=== PATIENT | male | born 1995 | race Caucasian/White ===

== ENCOUNTER 2019-01-21 11:06 | Emergency (ER) | payer SELFPAY ==
[~2019-01-21] VITALS: Ht 180.3 cm; Wt 75.1 kg
[2019-01-21 11:22] VITALS: BP 125/83
[2019-01-21] MEDS ORDERED: CEPH500T PO (11:28)
[2019-01-21] MEDS ORDERED: LIDOCAINE 1% Multi-Dose 20 ML VIAL. ONE (11:34)
[2019-01-21] MEDS ORDERED: cefTRIAXone IM 250 MG VIAL IM ONE (11:45)
[2019-01-21] MEDS ORDERED: AZITHROMYCIN 250 MG TABLET. PO ONE (11:45)
--- NOTE | 2019-01-21 11:49 | PHYS DOC ---
Adult General Chief Complaint Chief Complaint: SEXUALLY TRANSMITTED DISEASE HPI HPI Patient is a 23 yo m with cc of pain and burning when he urinates his urine is discolored this feels exactly the same as when he had chlamydia last time and is girlfriend just got tested for chlamydia last week and just started medicine for it yesterday. Patient also has a bump on his lip that he wants us to Review of Systems Review of Systems Constitutional: Denies fever or chills [] Eyes: Denies change in visual acuity, redness, or eye pain [] HENT: Denies nasal congestion or sore throat [] Respiratory: Denies cough or shortness of breath [] Musculoskeletal: Denies back pain or joint pain [] Integument: Neurologic: Denies headache, focal weakness or sensory changes [] Endocrine: Denies polyuria or polydipsia [] All other systems were reviewed and found to be within normal limits, except as documented in this note. Current Medications Current Medications Current Medications Medications (Trade) Dose Ordered Sig/Matthias Start Time Stop Time Status Last Admin Dose Admin Azithromycin (Zithromax) 1,000 mg 1X ONCE 01/21/19 11:45 01/21/19 11:44 DC 01/21/19 11:40 1,000 MG Ceftriaxone Sodium (Rocephin Im) 250 mg 1X ONCE 01/21/19 11:45 01/21/19 11:44 DC 01/21/19 11:40 250 MG Lidocaine HCl 20 ml STK-MED ONCE 01/21/19 11:34 01/21/19 11:34 DC Allergies Allergies Allergies Coded Allergies Type Severity Reaction Last Updated Verified No Known Drug Allergies 01/21/19 No Physical Exam Physical Exam Constitutional: Well developed, well nourished, no acute distress, non-toxic appearance. [] HENT: Normocephalic, atraumatic, bilateral external ears normal, there is a raised lesion on the left lower lip that sort of has the appearance of a blister that may recently popped there is some surrounding erythema and induration Eyes: PERRLA, EOMI, conjunctiva normal, no discharge. [] Neck: Normal range of motion, no tenderness, supple, no stridor. [] Pulmonary: Normal respiratory effort no increased work of breathing no obvious chest wall trauma Abdomen: Bowel sounds normal, soft, no tenderness, no masses, no pulsatile masses. [] exam was declined by the patient Skin: Warm, dry, no erythema, no rash. [] Back: No tenderness, no CVA tenderness. [] Extremities: No tenderness, no cyanosis, no clubbing, ROM intact, no edema. [] Neurologic: Alert and oriented X 3, normal motor function, normal sensory function, no focal deficits noted. [] Psychologic: Affect normal, judgement normal, mood normal. [] EKG EKG [] Radiology/Procedures Radiology/Procedures [] Course & Med Decision Making Course & Med Decision Making Pertinent Labs and Imaging studies reviewed. (See chart for details) []At this point time we'll treat presumptively for chlamydia given the history noted above. Recommend use protection for at least 2 weeks Regarding the lip lesion and could be a super infected blister of some kind. We'll give some antibiotics for that. Recommended cold sore [id number] medication for now. Herpetic lesion as a possibility but I think there may be a component of super infection so we'll try some antibiotics Dragon Disclaimer Dragon Disclaimer This electronic medical record was generated, in whole or in part, using a voice recognition dictation system. Departure Departure: Impression: Primary Impression: Dysuria Disposition: 01 HOME, SELF-CARE Condition: STABLE Patient Instructions: Sexually Transmitted Disease, [id number] Scripts Cephalexin (CEPHALEXIN) 500 Mg Tablet 1 TAB PO TID for lip, #21 TAB Prov: MJ BERMUDEZ MD 01/21/19 MJ BERMUDEZ MD Jan 21, 2019 11:49
== END 2019-01-21 11:43 | disposition home or self-care (01) ==
LOC: ER 11:06
DX: R30.0 Dysuria (principal); K13.0 Diseases of lips
CPT/HCPCS: 96372; 99283; J0456; J0696

== ENCOUNTER 2020-05-18 08:45 | Emergency (ER) | payer SELFPAY ==
[~2020-05-18] VITALS: Ht 177.8 cm; Wt 79.2 kg
[~2020-05-18 08:45] MED LIST: CEPH500T PO
--- NOTE | 2020-05-18 08:51 | PHYS DOC ---
Past History Past Medical History: No Pertinent History Past Surgical History: Tonsillectomy Alcohol Use: None Drug Use: None General Adult HPI: HPI: 24 yo M past medical history of tobacco dependence with occasional QT use, presents the ED with complaints of left-sided nonradiating chest pain described as "a knife in the heart," that started at 10 PM last night after patient smoked K2. Does report associated nausea, nonbloody nonbilious vomiting and one episode of loose watery nonbloody diarrhea prior to arrival. Does report history of marijuana dependence for 5 years. No history of IV drug use or recent alcohol abuse. No known cocaine or methamphetamine abuse. No associated blunt trauma or assault. No family history of ACS. No history of underlying lung disease or COPD or asthma. No history of DVT or PEs. Has not been tested for Covid. Review of Systems: Review of Systems: Constitutional: Denies fever or chills Eyes: Denies change in visual acuity HENT: Denies nasal congestion or sore throat Respiratory: Denies cough or shortness of breath Cardiovascular: Denies chest pain or edema GI: Denies abdominal pain, nausea, vomiting, bloody stools or diarrhea : Denies dysuria Musculoskeletal: Denies back pain or joint pain Integument: Denies rash Neurologic: Denies headache, focal weakness or sensory changes Endocrine: Denies polyuria or polydipsia Lymphatic: Denies swollen glands Psychiatric: Denies depression or anxiety Allergies: Allergies: Allergies Coded Allergies Type Severity Reaction Last Updated Verified No Known Drug Allergies 01/21/19 No Physical Exam: PE: Constitutional: unkept but nontoxic appearance, actively vomiting in ed (non bloody emesis), HENT: Normocephalic, atraumatic, no nuchal rigidity or meningismus Eyes: EOMI, conjunctiva normal, no discharge. Neck: Normal range of motion, supple, Cardiovascular: S1/2 present, regular rhythm Lungs & Thorax: Speaking in full sentences, bilateral equal chest rise, no tach ypnea or increased work of breathing Abdomen: soft, reports epigastic ttp, no McBurney's point tenderness, no Devries sign, no peritonitis or guarding Skin: Warm, dry, no erythema, no rash. [] Back: No tenderness, no CVA tenderness. [] Extremities: No tenderness, no cyanosis, no edema Neurologic: Alert and oriented X 3, normal motor function, normal sensory function, no focal deficits noted. [] Psychologic: Affect normal, judgement normal, mood normal. [] EKG: EKG: Sinus rhythm at 70 bpm, no axis deviation, normal intervals, no T wave inversions, no ST elevations or ST depressions no Q waves, Radiology/Procedures: Radiology/Procedures: IMAGING REPORT Signed PATIENT: MAGDA ANTHONY ACCOUNT: [id number] : 1995 LOCATION: ER AGE: 24 SEX: M EXAM STATUS: REG ER ORD. PHYSICIAN: CARLOS EDUARDO AMADOR DO REASON: cp PROCEDURE: CHEST PA & LATERAL XR CHEST 2V INDICATION: cp COMPARISON STUDY: None. FINDINGS: Lungs: Normal lung volume. No pulmonary mass or consolidation. The tracheobronchial tree and hilar structures are normal. Pleura: No pleural effusion or pneumothorax. Heart and Mediastinum: The cardiomediastinal silhouette is normal. The great vessels of the thorax are normal. IMPRESSION: No consolidation. Electronically signed by: Jessica Rawls MD (05/18/2020 9:15 AM) [id number] DICTATED AND SIGNED BY: JESSICA RAWLS MD DATE: 05/18/20911 CC: PCP,NO; CARLOS EDUARDO AMADOR DO ~MTH0 0 Impressions: 0 criteria No need for further workup, as <2% chance of PE. If no criteria are positive and clinicians pre-test probability is <15%, PERC Rule criteria are satisfied. 0 points Low risk group for DVT. Unlikely according to [facility] DVT studies. Heart Score: HEART Score for Chest Pain: HEART Score for Chest Pain Response (Comments) Value History Slighlty/Non-Suspicious 0 ECG Normal 0 Age < 45 0 Risk Factors 1 or 2 Risk Factors 1 Troponin < Normal Limit 0 Total 1 Risk Factors: Risk Factors: DM, Current or recent (<one month) smoker, HTN, HLP, family history of CAD, obesity. Risk Scores: Score 0 - 3: 2.5% MACE over next 6 weeks - Discharge Home Score 4 - 6: 20.3% MACE over next 6 weeks - Admit for Clinical Observation Score 7 - 10: 72.7% MACE over next 6 weeks - Early Invasive Strategies Course & Med Decision Making: Course & Med Decision Making Pertinent Labs and Imaging studies reviewed. (See chart for details) Concern for K2 adverse effect of nausea and vomiting with chest discomfort, likely related to patient's emesis. Cannabinoid hyperemesis syndrome very possible given pts' long duration of marijuana use and quick response to haldol- this would be pts' first episode of cyclic vomiting. Pt is not a PUI. Chest x- ray with no free air indicating Boerhaave syndrome. Troponin negative. Heart score 1. PERC negative. I discouraged furhter K2/illicit drug use, hot showers prn. Will discharge home with strict ED return precautions were given for worsening or severe chest pain, dehydration, anuria, back pain or neurologic deficits.. Encouraged urgent outpatient follow-up with PMD. Life-threatening processes were considered but are low suspicion at this time, given history, physical exam and ED workup. Pt was educated on all prescription medications and adverse effects. All patient's questions were answered and pt was stable at time of discharge. Life/limb-threatening differential includes but is not limited to, acute myocardial infarction, aortic dissection, congestive heart failure, esophageal injury including rupture, surgical abdomen, arrhythmia, cardiomyopathy, myocarditis, pericarditis, peptic ulcer disease, pneumomediastinum, pneumonia, pneumothorax, pulmonary embolus, unstable angina, rib fracture, contusion, pericardial tamponade or effusion, pulmonary contusion I spoken with the patient and her caregivers. I explained the patient's condition, diagnoses and treatment plan based on the information available to me at this time. I have answered the patient and her caregiver's questions and addressed any concerns. The patient and her caregivers have a good understanding of patient's diagnosis, condition and treatment plan as can be expected at this point. Vital signs have been stable. Patient's condition is stable and appropriate for discharge from the emergency department. Patient will pursue further outpatient evaluation with primary care physician or other designated or consulting physician as outlined in the discharge instructions. The patient and/or caregivers are agreeable to this plan of care and follow-up instructions have been explained in detail. The patient and/or caregivers have received these instructions in written form and have expressed an understanding of the discharge instructions. The patient and/or caregivers are aware that any significant change of condition or worsening of symptoms should prompt immediate return to this or the closest emergency department or call to 911. Jeyson Disclaimer: Jeyson Disclaimer: This electronic medical record was generated, in whole or in part, using a voice recognition dictation system. Departure Departure: Impression: Primary Impression: Nausea & vomiting Additional Impressions: Adverse drug effect Synthetic cannabinoid abuse Disposition: 01 DC HOME SELF CARE/HOMELESS Condition: STABLE Referrals: PCP,NO (PCP) FOLLOW UP WITH FAMILY MEDICINE: Complete [facility], [facility] [address] [place] [address], Patient Instructions: Marijuana Abuse-Brief, Nausea and Vomiting Additional Instructions: EMERGENCY DEPARTMENT GENERAL DISCHARGE INSTRUCTIONS Thank you for coming to [facility] (ED) today and trusting us with you care. We trust that you had a positivie experience in our Emergency Department. If you wish to speak to the department management, you may call the director at [phone]. YOUR FOLLOW UP INSTRUCTIONS ARE FOLLOWS: 1. Do you have a private Doctor? If you do not have a private doctor, please ask for a resource list of physicians or clinics that may be able to assist you with follow up care. 2. The Emergency Physician has interpreted your x-rays. The X-Ray specialist will also review them. If there is a change in the findings, you will be notified in 48 hours when at all possible. 3. A lab test or culture has been done, your results will be reviewed and you will be notified if you need a change in treatment. ADDITIONAL INSTRUCTIONS AND INFORMATION: 1. Your care today has been supervised by a physician who is specially trained in emergency care. Many problems require more than one evaluation for a complete diagnosis and treatment. We recommend that you schedule your follow up appointment as recommended to ensure complete treatment of you illness or injury. If you are unable to obtain follow up care and continue to have a problem, or if your condition worsens, we recommend that you return to the ED. 2. We are not able to safely determine your condition over the phone nor are we able to give sound medical advice over the phone. For these safety reasons, if you call for medical advice we will ask you to come to the ED for further evaluation. 3. If you have any questions regarding these discharge instructions please call the ED at [phone]. SAFETY INFORMATION: In the interest of safety, wellness, and injury prevention; we encourage you to wear your sealbelt, if you smoke; quite smoking, and we encourage family to use a protective helmet for bicycling and other sporting events that present an increased risk for head injury. IF YOUR SYMPTOMS WORSEN OR NEW SYMPTOMS DEVELOP, OR YOU HAVE CONCERNS ABOUT YOUR CONDITION; OR IF YOUR CONDITION WORSENS WHILE YOU ARE WAITING FOR YOUR FOLLOW UP APPOINTMENT; EITHER CONTACT YOUR PRIMARY CARE DOCTOR, THE PHYSICIAN WHOSE NAME AND NUMBER YOU WERE GIVEN, OR RETURN TO THE ED IMMEDIATELY. [facility] EDUARDO DO May 18, 2020 08:51
[2020-05-18 09:11] LABS: BASO # 0.1 x10^3/uL (0.0-0.2); BASO % 1 % (0-3); EOS % 0 % (0-3); HEMATOCRIT 48.8 % (39.0-53.0); HEMOGLOBIN 16.7 g/dL (13.0-17.5); LYMPH # 1.2 x10^3/uL (1.0-4.8); LYMPH % 8 % (24-48); MEAN CORPUSCULAR HEMOGLOBIN 31 pg (25-35); MEAN CORPUSCULAR HGB CONC 34 g/dL (31-37); MEAN CORPUSCULAR VOLUME 92 fL (79-100); MONO # 0.5 x10^3/uL (0.0-1.1); MONO % 4 % (0-9); NEUT # 12.8 x10^3uL (1.8-7.7); NEUT % 88 % (31-73); PLATELET COUNT 247 x10^3/uL (140-400); RED BLOOD COUNT 5.33 x10^6/uL (4.30-5.70); WHITE BLOOD COUNT 14.6 x10^3/uL (4.0-11.0)
[2020-05-18] MEDS ORDERED: METOCLOPRAMIDE HCL 10 MG/2 ML VIAL. IVP ONE (09:15)
[2020-05-18] MEDS ORDERED: IV NORMAL SALINE 1,000ML 1,000 ML IV ONE (09:15)
[2020-05-18] MEDS ORDERED: FAMOTIDINE 20 MG/2 ML VIAL IVP ONE (09:15)
--- NOTE | 2020-05-18 09:17 | RAD ---
XR CHEST 2V INDICATION: cp COMPARISON STUDY: None. FINDINGS: Lungs: Normal lung volume. No pulmonary mass or consolidation. The tracheobronchial tree and hilar st ructures are normal. Pleura: No pleural effusion or pneumothorax. Heart and Mediastinum: The cardiomediastinal silhouette is normal. The great vessels of the thorax ar e normal. IMPRESSION: No consolidation. Electronically signed by: Silvio Rawls MD (05/18/2020 9:15 AM) [id number]
[2020-05-18 09:19] LABS: CALCIUM 9.3 mg/dL (8.5-10.1); CREATININE 1.3 mg/dL (0.7-1.3); GFR 67.8; POTASSIUM 3.2 mmol/L (3.5-5.1)
[2020-05-18 09:25] LABS: ALBUMIN 4.7 g/dL (3.4-5.0); ALBUMIN/GLOBULIN RATIO 1.4 (1.0-1.7); MAGNESIUM 1.7 mg/dL (1.8-2.4); TOTAL BILIRUBIN 0.6 mg/dL (0.2-1.0)
[2020-05-18] MEDS ORDERED: HALOPERIDOL LACT 5 MG/ML VIAL. IVP ONE (09:30)
[2020-05-18 10:34] LABS: AMPHETAMINE/METHAMPHETAMINE NEG (NEG); BARBITURATES NEG (NEG); BENZODIAZEPINES NEG (NEG); CANNABINOIDS NEG (NEG); COCAINE NEG (NEG); METHADONE NEG (NEG); OPIATES NEG (NEG); PHENCYCLIDINE NEG (NEG)
[2020-05-18 11:00] VITALS: BP 101/61
--- NOTE | 2020-05-18 14:11 | EKG ---
[facility] ED [facility] [address] [place] [id number] Test Date: 2020-05-18 Test Time: 08:50:30 Pat Name: MAGDA ANTHONY Department: Room: Gender: M [place]: : 1995 Requested By: CARLOS EDUARDO AMADOR Order Number: [id number] Reading MD: Nolan Doll Measurements Intervals [place] Rate: 70 P: 31 TX: 138 QRS: 66 QRSD: 94 T: 37 QT: 378 QTc: 411 Interpretive Statements SINUS RHYTHM Electronically Signed On 05-20-2020 13:41:05 REGISTRY NP by Nolan Doll
[2020-05-18 15:00] LABS: % LYMPHS 8 % (24-48); % MONOS 2 % (0-10); % SEGS 90 % (35-66)
[2020-05-18 15:01] LABS: PLT ESTIMATE ADEQUATE (ADEQUATE)
== END 2020-05-18 11:10 | disposition home or self-care (01) ==
LOC: ER 08:45
DX: T78.8XXA Other adverse effects, not elsewhere classified, initial encounter (principal); R11.2 Nausea with vomiting, unspecified; F12.10 Cannabis abuse, uncomplicated; Z87.891 Personal history of nicotine dependence; X58.XXXA Exposure to other specified factors, initial encounter
CPT/HCPCS: 36415; 71046; 80053; 80307; 82550; 83690; 83735; 84484; 85007; 85025; 93005; 96361; 96374; 96375; 99285; G0480; J1630; J2765; J3490; J7030

== ENCOUNTER 2020-11-24 20:21 | Emergency (ER) | payer SELFPAY ==
[~2020-11-24] VITALS: Ht 177.8 cm; Wt 65.6 kg
--- NOTE | 2020-11-24 20:44 | PHYS DOC ---
Past History Past Medical History: No Pertinent History Past Surgical History: Tonsillectomy Alcohol Use: None Drug Use: None General Adult EDM: Chief Complaint: Palpitations HPI: HPI: 25-year-old male presents with palpitations and chest pain. He tells me that he started to feel palpitations last night. He has shortness of breath with these palpitations. He was able to state but continues to have intermittent palpitations, shortness of breath, and a heavy chest pressure. He states that he has moderate to severe at this time. He smokes a pack of cigarettes a day. He denies any other drug use. No cardiac history. He does not go to a doctor has no official chronic diagnosis. He tells me he is having palpitations for several years. Denies fever or chills. Review of Systems: Review of Systems: Constitutional: Denies fever or chills Eyes: Denies change in visual acuity HENT: Denies nasal congestion or sore throat Respiratory: Shortness of breath without cough Cardiovascular: Chest pain, palpitations GI: Nausea. Denies abdominal pain, vomiting, bloody stools or diarrhea : Denies dysuria Musculoskeletal: Denies back pain or joint pain Integument: Denies rash Neurologic: Denies headache, focal weakness or sensory changes Endocrine: Denies polyuria or polydipsia Lymphatic: Denies swollen glands Psychiatric: Denies depression or anxiety Current Medications: Current Meds: Current Medications Medications (Trade) Dose Ordered Sig/Matthias Start Time Stop Time Status Last Admin Dose Admin Ondansetron HCl (Zofran) 4 mg 1X ONCE 11/24/20 20:45 11/24/20 20:46 UNV Sodium Chloride 1,000 ml @ 1,000 mls/hr 1X ONCE 11/24/20 20:45 11/24/20 21:44 UNV Allergies: Allergies: Allergies Coded Allergies Type Severity Reaction Last Updated Verified No Known Drug Allergies 01/21/19 No Physical Exam: PE: Constitutional: Well developed, well nourished, no acute distress, non-toxic appearance. [] HENT: Normocephalic, atraumatic, bilateral external ears normal, oropharynx moist, no oral exudates, nose normal. [] Eyes: PERRLA, EOMI, conjunctiva normal, no discharge. [] Neck: Normal range of motion, no tenderness, supple, no stridor. [] Cardiovascular:Heart rate regular rhythm, no murmur [] Lungs & Thorax: Bilateral breath sounds clear to auscultation [] Abdomen: Bowel sounds normal, soft, no tenderness, no masses, no pulsatile mas ses. [] Skin: Warm, dry, no erythema, no rash. [] Back: No tenderness, no CVA tenderness. [] Extremities: No tenderness, no cyanosis, no clubbing, ROM intact, no edema. [] Neurologic: Alert and oriented X 3, normal motor function, normal sensory function, no focal deficits noted. [] Psychologic: Affect normal, judgement normal, mood normal. [] EKG: EKG: Sinus rhythm, rate 64, normal axis, no ST elevation or depression, PAC. [] Radiology/Procedures: Radiology/Procedures: [] Impressions: EXAM: CHEST 1 VIEW History: Palpitations COMPARISON: 05/18/2020 TECHNIQUE: Single portable radiograph of the chest FINDINGS: The cardiac silhouette is unremarkable. The lungs are clear bilaterally. The costophrenic sulci are clear and well demarcated. IMPRESSION: No radiographic evidence of an acute cardiopulmonary process. Electronically signed by: Miguel Childs MD (11/24/2020 9:08 PM) [id number] DICTATED AND SIGNED BY: MIGUEL CHILDS MD DATE: 11/24/202106 CC: RACHEL SANTILLAN DO; PCP,NO ~MTH0 0 Heart Score: C/O Chest Pain: Yes HEART Score for Chest Pain: HEART Score for Chest Pain Response (Comments) Value History Slighlty/Non-Suspicious 0 ECG Nonspecific Repolarizatio 1 Age < 45 0 Risk Factors 1 or 2 Risk Factors 1 Troponin < Normal Limit 0 Total 2 Risk Factors: Risk Factors: DM, Current or recent (<one month) smoker, HTN, HLP, family history of CAD, obesity. Risk Scores: Score 0 - 3: 2.5% MACE over next 6 weeks - Discharge Home Score 4 - 6: 20.3% MACE over next 6 weeks - Admit for Clinical Observation Score 7 - 10: 72.7% MACE over next 6 weeks - Early Invasive Strategies Course & Med Decision Making: Course & Med Decision Making Pertinent Labs and Imaging studies reviewed. (See chart for details) The patient's EKG is unremarkable except for PAC.. Patient's chest x-ray is negative for acute findings. He was nauseated in the ER so I gave him 4 mg of Zofran. His labs are unremarkable except for an elevated anion gap of 19 with a normal CO2 of 22. He has slightly elevated white count. The patient does not appear to have a cardiopulmonary problem at this time. He gets worried about his breathing and starts breathing fast. I suspect his hyperventilating is causing some of his symptoms. He is stable for discharge at this time. [] Dragon Disclaimer: Dragon Disclaimer: This electronic medical record was generated, in whole or in part, using a voice recognition dictation system. Departure Departure: Impression: Primary Impression: Palpitations Additional Impression: Shortness of breath Disposition: 01 HOME / SELF CARE / HOMELESS Condition: STABLE Referrals: PCPFREDI (PCP) Patient Instructions: Palpitations, [id number] RACHEL SANTILLAN DO Nov 24, 2020 20:44
[2020-11-24] MEDS ORDERED: ONDANSETRON PF 4 MG/2 ML VIAL. IVP ONE (20:45)
[2020-11-24] MEDS ORDERED: IV NORMAL SALINE 1,000ML 1,000 ML IV ONE (20:45)
[2020-11-24] MEDS ORDERED: ASPIRIN CHEWABLE 81 MG TABLET. PO ONE (20:45)
[2020-11-24 20:55] LABS: BASO # 0.1 x10^3/uL (0.0-0.2); BASO % 1 % (0-3); EOS % 0 % (0-3); HEMATOCRIT 47.7 % (39.0-53.0); HEMOGLOBIN 16.3 g/dL (13.0-17.5); LYMPH % 16 % (24-48); MEAN CORPUSCULAR HEMOGLOBIN 32 pg (25-35); MEAN CORPUSCULAR HGB CONC 34 g/dL (31-37); MEAN CORPUSCULAR VOLUME 94 fL (79-100); MONO # 1.1 x10^3/uL (0.0-1.1); MONO % 9 % (0-9); NEUT # 9.7 x10^3uL (1.8-7.7); NEUT % 75 % (31-73); PLATELET COUNT 269 x10^3/uL (140-400); RED BLOOD COUNT 5.08 x10^6/uL (4.30-5.70); RED CELL DISTRIBUTION WIDTH 14.3 % (11.5-14.5); WHITE BLOOD COUNT 12.9 x10^3/uL (4.0-11.0)
[2020-11-24 21:00] LABS: CALCIUM 9.8 mg/dL (8.5-10.1); CREATININE 1.1 mg/dL (0.7-1.3); GFR 81.6; POTASSIUM 3.2 mmol/L (3.5-5.1)
[2020-11-24 21:05] LABS: ALBUMIN 5.2 g/dL (3.4-5.0); ALBUMIN/GLOBULIN RATIO 2.1 (1.0-1.7); TOTAL PROTEIN 7.7 g/dL (6.4-8.2)
--- NOTE | 2020-11-24 21:11 | RAD ---
EXAM: CHEST 1 VIEW History: Palpitations COMPARISON: 05/18/2020 TECHNIQUE: Single portable radiograph of the chest FINDINGS: The cardiac silhouette is unremarkable. The lungs are clear bilaterally. The costophrenic sulci are clear and well demarcated. IMPRESSION: No radiographic evidence of an acute cardiopulmonary process. Electronically signed by: Miguel Childs MD (11/24/2020 9:08 PM) [id number]
--- NOTE | 2020-11-24 21:16 | EKG ---
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
[2020-11-24 22:07] LABS: BARBITURATES NEG (NEG); BENZODIAZEPINES NEG (NEG); CANNABINOIDS NEG (NEG); COCAINE NEG (NEG); METHADONE NEG (NEG); OPIATES NEG (NEG); PHENCYCLIDINE NEG (NEG)
[2020-11-24 22:08] VITALS: BP 113/68
[2020-11-24 22:13] LABS: AMPHETAMINE/METHAMPHETAMINE NEG (NEG)
[2020-11-24 22:16] LABS: BILIRUBIN,URINE SMALL (NEG); CLARITY,URINE CLEAR; COLOR,URINE YELLOW; GLUCOSE,URINE NEG (NEG)
[2020-11-24 22:17] LABS: NITRITE,URINE NEG (NEG); UROBILINOGEN,URINE 0.2 mg/dL (0.2 mg/dL)
[2020-11-24 22:21] LABS: BACTERIA,URINE FEW /HPF (0-FEW)
== END 2020-11-24 22:13 | disposition home or self-care (01) ==
LOC: ER 20:21
DX: R00.2 Palpitations (principal); R06.02 Shortness of breath; R07.89 Other chest pain
CPT/HCPCS: 36415; 71045; 80053; 80307; 81001; 84484; 85025; 93005; 96361; 96374; 99285; J2405; J7030

== ENCOUNTER 2021-03-17 06:52 | Emergency (ER) | payer SELFPAY ==
[~2021-03-17] VITALS: Ht 177.8 cm; Wt 65.6 kg
[2021-03-17 06:52] VITALS: BP 136/89
[2021-03-17] MEDS ORDERED: ONDANSETRON PF 4 MG/2 ML VIAL. ONE (07:02)
--- NOTE | 2021-03-17 07:10 | PHYS DOC ---
Past History Past Medical History: No Pertinent History Past Surgical History: Tonsillectomy Alcohol Use: Occasionally Drug Use: None Social History Narrative: K-2 General Adult EDM: Chief Complaint: OVERDOSE HPI: HPI: Patient is a 25-year-old male coming to the emergency department for chest pain and vomiting. Patient states that he started vomiting last night after smoking K2 and then smoked again just prior to arrival to try to alleviate symptoms. Patient states he smokes K2 daily. States he has a history of a "hole in his heart". And cannot feel anything but his heart. Is not vaccinated his Covid. No other medical history, and does not have a primary care provider. Denies any other drugs or alcohol use, positive for tobacco use Review of Systems: Review of Systems: All other systems within normal limits except for as noted in the HPI Current Medications: Current Meds: Current Medications Medications (Trade) Dose Ordered Sig/Matthias Start Time Stop Time Status Last Admin Dose Admin Diphenhydramine HCl (Benadryl) 50 mg 1X ONCE 03/17/21 07:15 03/17/21 07:16 UNV Haloperidol Lactate (Haldol) 5 mg 1X ONCE 03/17/21 07:15 03/17/21 07:16 UNV Ondansetron HCl (Zofran) 4 mg STK-MED ONCE 03/17/21 07:02 03/17/21 07:02 DC Sodium Chloride 1,000 ml @ 1,000 mls/hr 1X ONCE 03/17/21 07:15 03/17/21 08:14 UNV Allergies: Allergies: Allergies Coded Allergies Type Severity Reaction Last Updated Verified No Known Drug Allergies 01/21/19 No Physical Exam: PE: Constitutional: Well developed, well nourished, no acute distress, non-toxic appearance. [] HENT: Normocephalic, atraumatic, bilateral external ears normal, nose normal. [] Eyes: PERRLA, conjunctiva normal, no discharge. [] Neck: No rigidity, supple, no stridor. [] Cardiovascular: Regular rate and rhythm, brisk cap refill [] Lungs & Thorax: Non labored symmetric respirations, no tachypnea or respiratory distress [] Abdomen: Soft, nondistended. Skin: Warm, dry, no erythema, no rash. [] Back: Unremarkable Extremities: No deformities, range of motion grossly intact, no lower extremity edema [] Neurologic: Alert and oriented X 3, no focal deficits noted. [] Psychologic: Affect normal, judgement normal, mood normal. [] Current Patient Data: Vital Signs: Vital Signs Date Time Temp Pulse Resp B/P (MAP) Pulse Ox O2 Delivery O2 Flow Rate FiO2 03/17/21 06:52 98.7 72 38 98 EKG: EKG: Sinus rhythm, heart rate 60 bpm, normal axis, no ST elevation depression, normal intervals. [] Radiology/Procedures: Radiology/Procedures: [place] [address] IMAGING REPORT Signed PATIENT: MAGDA ANTHONY ACCOUNT: [id number] : 1995 LOCATION: ER AGE: 25 SEX: M EXAM STATUS: REG ER ORD. PHYSICIAN: FABIENNE WEBB MD REASON: DYSPNEA, CHEST PAIN PROCEDURE: CHEST AP ONLY XR CHEST 1V History: Dyspnea, chest pain Comparison: 11/24/2020 Technique: Portable AP radiograph of the chest. Findings: The lungs are adequately inflated. No focal airspace consolidation, pleural effusion or pneumothorax. No cardiomediastinal silhouette and pulmonary vasculature are within normal limits. Osseous structures and soft tissues are unremarkable. Impression: 1. No acute cardiopulmonary process. Electronically signed by: Emerson Scott MD (03/17/2021 7:48 AM) [id number] DICTATED AND SIGNED BY: EMERSON SCOTT MD DATE: 03/17/21 0746 CC: FABIENNE WEBB MD; PCP,NO ~MTH0 0 [] Heart Score: C/O Chest Pain: No Risk Factors: Risk Factors: DM, Current or recent (<one month) smoker, HTN, HLP, family history of CAD, obesity. Risk Scores: Score 0 - 3: 2.5% MACE over next 6 weeks - Discharge Home Score 4 - 6: 20.3% MACE over next 6 weeks - Admit for Clinical Observation Score 7 - 10: 72.7% MACE over next 6 weeks - Early Invasive Strategies Course & Med Decision Making: Course & Med Decision Making Pertinent Labs and Imaging studies reviewed. (See chart for details) Patient stating he feels better and is tolerating p.o., declined CT. Patient asking to be discharged. Patient declined information for drug rehab. [] Dragon Disclaimer: Dragon Disclaimer: This electronic medical record was generated, in whole or in part, using a voice recognition dictation system. Departure Departure: Impression: Primary Impression: Vomiting Disposition: HOME / SELF CARE / HOMELESS Condition: STABLE Referrals: PCP,NO (PCP) Patient Instructions: Nausea and Vomiting Scripts Ondansetron (ONDANSETRON ODT) 4 Mg Tab.rapdis 1 TAB PO PRN Q6-8HRS PRN for NAUSEA, #16 TAB Prov: FABIENNE WEBB MD 03/17/21 FABIENNE WEBB MD Mar 17, 2021 07:09
[2021-03-17] MEDS ORDERED: diphenhydrAMINE 50 MG/ML VIAL ONE (07:11)
[2021-03-17] MEDS ORDERED: HALOPERIDOL LACT 5 MG/ML VIAL. ONE (07:11)
[2021-03-17] MEDS ORDERED: diphenhydrAMINE 50 MG/ML VIAL IVP ONE (07:15)
[2021-03-17] MEDS ORDERED: IV NORMAL SALINE 1,000ML 1,000 ML IV ONE (07:15)
[2021-03-17] MEDS ORDERED: ONDANSETRON PF 4 MG/2 ML VIAL. IVP ONE (07:15)
[2021-03-17] MEDS ORDERED: HALOPERIDOL LACT 5 MG/ML VIAL. IVP ONE (07:15)
[2021-03-17 07:21] LABS: BASO # 0.1 x10^3/uL (0.0-0.2); BASO % 1 % (0-3); EOS % 0 % (0-3); HEMATOCRIT 49.1 % (39.0-53.0); HEMOGLOBIN 16.4 g/dL (13.0-17.5); LYMPH # 2.3 x10^3/uL (1.0-4.8); LYMPH % 13 % (24-48); MEAN CORPUSCULAR HEMOGLOBIN 32 pg (25-35); MEAN CORPUSCULAR HGB CONC 33 g/dL (31-37); MEAN CORPUSCULAR VOLUME 95 fL (79-100); MONO # 1.1 x10^3/uL (0.0-1.1); MONO % 6 % (0-9); NEUT % 81 % (31-73); PLATELET COUNT 299 x10^3/uL (140-400); RED BLOOD COUNT 5.16 x10^6/uL (4.30-5.70); RED CELL DISTRIBUTION WIDTH 14.4 % (11.5-14.5); WHITE BLOOD COUNT 18.5 x10^3/uL (4.0-11.0)
[2021-03-17 07:31] LABS: CALCIUM 9.9 mg/dL (8.5-10.1); POTASSIUM 3.2 mmol/L (3.5-5.1)
[2021-03-17 07:37] LABS: ALBUMIN 4.6 g/dL (3.4-5.0); ALBUMIN/GLOBULIN RATIO 1.4 (1.0-1.7); PHOSPHORUS 3.2 mg/dL (2.6-4.7); TOTAL BILIRUBIN 0.9 mg/dL (0.2-1.0); TOTAL PROTEIN 7.8 g/dL (6.4-8.2)
--- NOTE | 2021-03-17 07:41 | EKG ---
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
--- NOTE | 2021-03-17 07:50 | RAD ---
XR CHEST 1V History: Dyspnea, chest pain Comparison: 11/24/2020 Technique: Portable AP radiograph of the chest. Findings: The lungs are adequately inflated. No focal airspace consolidation, pleural effusion or pneumothorax. No cardiomediastinal silhouette and pulmonary vasculature are within normal limits. Osseous structur es and soft tissues are unremarkable. Impression: 1. No acute cardiopulmonary process. Electronically signed by: Emerson Scott MD (03/17/2021 7:48 AM) [id number]
[2021-03-17] MEDS ORDERED: CONTRAST GIVEN. MC PRN (08:15)
[2021-03-17] MEDS ORDERED: IOHEXOL 300 MG/ML 75 ML VIAL. IV ONE (08:15)
[2021-03-17] MEDS ORDERED: ONDA4TAB12 PO (09:48)
[2021-03-17 13:58] LABS: % LYMPHS 13 % (24-48); % MONOS 8 % (0-10); % SEGS 79 % (35-66); PLT ESTIMATE ADEQUATE (ADEQUATE)
== END 2021-03-17 09:54 | disposition home or self-care (01) ==
LOC: ER 06:52
DX: R11.10 Vomiting, unspecified (principal); R07.89 Other chest pain; Z20.822 Contact with and (suspected) exposure to COVID-19
CPT/HCPCS: 71045; 80053; 83690; 83735; 84100; 85007; 85025; 93005; 96361; 96374; 96375; 99285; C9803; G0480; J1200; J1630; J2405; J7030; U0003

== ENCOUNTER 2021-07-31 16:04 | Emergency (ER) | payer SELFPAY ==
[~2021-07-31] VITALS: Ht 177.8 cm; Wt 65.6 kg
[~2021-07-31 16:04] MED LIST changes: +ONDA4TAB12 PO
[2021-07-31 16:12] VITALS: BP 130/77
[2021-07-31] MEDS ORDERED: ONDANSETRON PF 4 MG/2 ML VIAL. IVP ONE (17:00)
[2021-07-31 17:13] LABS: BASO # 0.1 x10^3/uL (0.0-0.2); BASO % 1 % (0-3); EOS % 0 % (0-3); HEMATOCRIT 49.5 % (39.0-53.0); HEMOGLOBIN 16.8 g/dL (13.0-17.5); LYMPH # 1.9 x10^3/uL (1.0-4.8); LYMPH % 12 % (24-48); MEAN CORPUSCULAR HEMOGLOBIN 32 pg (25-35); MEAN CORPUSCULAR HGB CONC 34 g/dL (31-37); MEAN CORPUSCULAR VOLUME 95 fL (79-100); MONO # 0.8 x10^3/uL (0.0-1.1); MONO % 5 % (0-9); NEUT % 82 % (31-73); PLATELET COUNT 287 x10^3/uL (140-400); RED BLOOD COUNT 5.24 x10^6/uL (4.30-5.70); RED CELL DISTRIBUTION WIDTH 14.4 % (11.5-14.5); WHITE BLOOD COUNT 15.9 x10^3/uL (4.0-11.0)
[2021-07-31] MEDS ORDERED: LORazepam 1 MG TABLET PO ONE (17:15)
[2021-07-31] MEDS ORDERED: LIDO:MAALOX 1:1 20 ML SINGLE DOSE. PO ONE (17:15)
[2021-07-31 17:21] LABS: CALCIUM 9.9 mg/dL (8.5-10.1); CREATININE 1.1 mg/dL (0.7-1.3); GFR 80.9
--- NOTE | 2021-07-31 17:21 | RAD ---
XR CHEST 1V History: Reason: cp / Spl. Instructions: / History: Comparison: March 17, 2021 Findings: No consolidation or pleural effusion. Normal heart size. No pneumothorax. Impression: 1. No acute cardiopulmonary process. Electronically signed by: Lewis Wood DO (07/31/2021 5:19 PM) [id number]
[2021-07-31 17:27] LABS: ALBUMIN 5.4 g/dL (3.4-5.0); ALBUMIN/GLOBULIN RATIO 1.8 (1.0-1.7); TOTAL BILIRUBIN 1.3 mg/dL (0.2-1.0); TOTAL PROTEIN 8.4 g/dL (6.4-8.2)
--- NOTE | 2021-07-31 17:32 | PHYS DOC ---
Past History Past Medical History: STD (SAGRARIO REYES) Past Surgical History: Tonsillectomy (SAGRARIO REYES) Alcohol Use: Occasionally Drug Use: Other Social History Narrative: Synthetic cannabinoids (SAGRARIO REYES) General Adult EDM: Chief Complaint: CHEST PAIN HPI: HPI: Patient is a 26 year old male who presents with multiple complaints. Patient states that he has used synthetic cannabinoids (K2) for period of over 3 years. 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 The past 3 days, patient states that he has been vomiting every day and now is experiencing a burning chest pain. Additionally, patient states his recently had a miscarriage, which was attributed to a chlamydia infection. He reports that she was treated with antibiotics and he was given 2 Z-Paks. Patient reports that he continues to experience dysuria without hematuria or urethral discharge. Patient has no other complaints at this time. (SAGRARIO REYES) Review of Systems: Review of Systems: Constitutional: Denies fever, chills or generalized weakness Eyes: Denies change in visual acuity, visual field deficits or discharge HENT: Denies ear pain, nasal congestion or sore throat Respiratory: Denies cough or shortness of breath Cardiovascular: See HPI GI: See HPI : See HPI Musculoskeletal: Denies back pain or joint pain Integument: Denies rash or other skin lesion Neurologic: Denies headache, focal weakness or sensory changes (SAGRARIO REYES) Current Medications: Current Meds: Current Medications Medications (Trade) Dose Ordered Sig/Matthias Start Time Stop Time Status Last Admin Dose Admin Lorazepam (Ativan) 1 mg 1X ONCE 07/31/21 17:15 07/31/21 17:16 DC Multi-Ingredient Mouthwash/Gargle (Gi Cocktail) 20 ml 1X ONCE 07/31/21 17:15 07/31/21 17:16 DC Ondansetron HCl (Zofran) 4 mg 1X ONCE 07/31/21 17:00 07/31/21 17:05 DC 07/31/21 17:00 4 MG (SAGRARIO REYES) Allergies: Allergies: Allergies Coded Allergies Type Severity Reaction Last Updated Verified No Known Drug Allergies 01/21/19 No (SAGRARIO REYES) Physical Exam: PE: Constitutional: Well developed, well nourished, no acute distress, non-toxic appearance. HENT: Normocephalic, atraumatic, bilateral external ears normal, nose normal. Eyes: EOMI, conjunctiva normal, no discharge. Neck: Normal range of motion, no stridor. Cardiovascular: Heart rate regular rhythm, no murmur. Lungs & Thorax: Bilateral breath sounds clear to auscultation. Abdomen: Bowel sounds normal, soft, no tenderness, no masses, no pulsatile masses. Skin: Warm, dry, no erythema, no rash. Neurologic: Alert and oriented x4, no focal deficits noted. Psychologic: Affect anxious, fair judgment, mood "sick." (SAGRARIO REYES) Current Patient Data: Labs: Laboratory Tests Test 07/31/21 16:50 White Blood Count 15.9 x10^3/uL (4.0-11.0) H Red Blood Count 5.24 x10^6/uL (4.30-5.70) Hemoglobin 16.8 g/dL (13.0-17.5) Hematocrit 49.5 % (39.0-53.0) Mean Corpuscular Volume 95 fL (79-100) Mean Corpuscular Hemoglobin 32 pg (25-35) Mean Corpuscular Hemoglobin Concent 34 g/dL (31-37) Red Cell Distribution Width 14.4 % (11.5-14.5) Platelet Count 287 x10^3/uL (140-400) Neutrophils (%) (Auto) 82 % (31-73) H Lymphocytes (%) (Auto) 12 % (24-48) L Monocytes (%) (Auto) 5 % (0-9) Eosinophils (%) (Auto) 0 % (0-3) Basophils (%) (Auto) 1 % (0-3) Neutrophils # (Auto) 13.0 x10^3uL (1.8-7.7) H Lymphocytes # (Auto) 1.9 x10^3/uL (1.0-4.8) Monocytes # (Auto) 0.8 x10^3/uL (0.0-1.1) Eosinophils # (Auto) 0.0 x10^3/uL (0.0-0.7) Basophils # (Auto) 0.1 x10^3/uL (0.0-0.2) Platelet Estimate Pending Sodium Level 136 mmol/L (136-145) Potassium Level 4.0 mmol/L (3.5-5.1) Chloride Level 99 mmol/L (98-107) Carbon Dioxide Level 26 mmol/L (21-32) Anion Gap 11 (6-14) Blood Urea Nitrogen 28 mg/dL (8-26) H Creatinine 1.1 mg/dL (0.7-1.3) Estimated GFR (Cockcroft-Gault) 80.9 BUN/Creatinine Ratio 25 (6-20) H Glucose Level 82 mg/dL (70-99) Calcium Level 9.9 mg/dL (8.5-10.1) Total Bilirubin 1.3 mg/dL (0.2-1.0) H Aspartate Amino Transferase (AST) 28 U/L (15-37) Alanine Aminotransferase (ALT) 43 U/L (16-63) Alkaline Phosphatase 106 U/L (46-116) Troponin I High Sensitivity 8 ng/L (4-75) Total Protein 8.4 g/dL (6.4-8.2) H Albumin 5.4 g/dL (3.4-5.0) H Albumin/Globulin Ratio 1.8 (1.0-1.7) H Vital Signs: Vital Signs Date Time Temp Pulse Resp B/P (MAP) Pulse Ox O2 Delivery O2 Flow Rate FiO2 07/31/21 16:12 99.3 67 20 130/77 (94) 99 Room Air (SAGRARIO REYES) EKG: EKG: EKG Interpreted by Dr. Chaudhari at 1620: Regular rate and rhythm 64 bpm with no ectopic beats. QT 396 ms/QTc 408 ms. No STEMI. (SAGRARIO REYES) Radiology/Procedures: Radiology/Procedures: PROCEDURE: CHEST AP ONLY XR CHEST 1V History: Reason: cp / Spl. Instructions: / History: Comparison: March 17, 2021 Findings: No consolidation or pleural effusion. Normal heart size. No pneumothorax. Impression: 1. No acute cardiopulmonary process. Electronically signed by: Lewis Wood DO (07/31/2021 5:19 PM) [id number] (SAGRARIO REYES) Heart Score: C/O Chest Pain: Yes HEART Score for Chest Pain: HEART Score for Chest Pain Response (Comments) Value History Slighlty/Non-Suspicious 0 ECG Normal 0 Age < 45 0 Risk Factors No Risk Factors 0 Troponin < Normal Limit 0 Total 0 Risk Factors: Risk Factors: none Risk Scores: Score 0 - 3: 2.5% MACE over next 6 weeks - Discharge Home Score 4 - 6: 20.3% MACE over next 6 weeks - Admit for Clinical Observation Score 7 - 10: 72.7% MACE over next 6 weeks - Early Invasive Strategies (SAGRARIO REYES) Course & Med Decision Making: Course & Med Decision Making Pertinent Labs and Imaging studies reviewed. (See chart for details) Patient is a 26-year-old male with multiple complaints. Work-up today will consist of labs, urinalysis, EKG, chest x-ray. Patient's chest discomfort is likely secondary to repetitive vomiting and esophageal irritation. Patient provided with GI cocktail, which significantly improved his symptoms. Patient is also going to be treated for gonorrhea/chlamydia, as the Z-Paks did not resolve his symptoms. All patient's questions were answered. Advised to abstain from intercourse until he and his have BOTH completed antibiotic treatment. Community resources for both health services and psychological services provided, and patient agrees to follow up with both. Return precautions provided. Patient understands and is agreeable to discharge plan. (SAGRARIO REYES) Course & Med Decision Making Did not see or evaluate patient. Did not discuss patient with PA. Generally agree with PAs work-up and disposition per note (BARB ROTHMAN MD) Dragon Disclaimer: Dragon Disclaimer: This electronic medical record was generated, in whole or in part, using a voice recognition dictation system. (SAGRARIO REYES) Departure Departure: Impression: Primary Impression: Exposure to sexually transmitted disease (STD) Additional Impressions: Cannabinoid hyperemesis syndrome Anxiety about health Disposition: 01 HOME / SELF CARE / HOMELESS Condition: STABLE Referrals: PCP,FREDI (PCP) Patient Instructions: Nausea and Vomiting, [id number], Safe Sex Additional Instructions: EMERGENCY DEPARTMENT GENERAL DISCHARGE INSTRUCTIONS Thank you for coming to [facility] (ED) today and trusting us with you care. We trust that you had a positive experience in our Emergency Department. If you wish to speak to the department management, you may call the director at [phone]. YOUR FOLLOW UP INSTRUCTIONS ARE FOLLOWS: 1. Follow up with your primary care doctor. If you do not have a primary doctor, please ask for a resource list of physicians or clinics that may be able to assist you with follow up care. 2. The emergency provider has interpreted your imaging studies, if any were ordered. The radiology imaging technologist also reviewed them. If there is a change in the findings, you will be notified in 48 hours when at all possible. 3. If a lab test or culture has been done, your results will be reviewed and you will be notified if you need a change in treatment. 4. Follow instructions verbalized to you and refer to the printouts if needed. ADDITIONAL INSTRUCTIONS AND INFORMATION: 1. Your care today has been supervised by a physician who is specially trained in emergency care. Many problems require more than one evaluation for a complete diagnosis and treatment. We recommend that you schedule your follow up appointment as recommended to ensure complete treatment of you illness or injury. If you are unable to obtain follow up care and continue to have a problem, or if your condition worsens, we recommend that you return to the ED. 2. We are not able to safely determine your condition over the phone nor are we able to give sound medical advice over the phone. For these safety reasons, if you call for medical advice we will ask you to come to the ED for further evaluation. 3. If you have any questions regarding these discharge instructions please call the ED at [phone]. SAFETY INFORMATION: In the interest of safety, wellness, and injury prevention; we encourage you to wear your seat belt, if you smoke; quite smoking, and we encourage family to use a protective helmet for bicycling and other sporting events that present an increased risk for head injury. IF YOUR SYMPTOMS WORSEN OR NEW SYMPTOMS DEVELOP, OR YOU HAVE CONCERNS ABOUT YOUR CONDITION; OR IF YOUR CONDITION WORSENS WHILE YOU ARE WAITING FOR YOUR FOLLOW UP APPOINTMENT; EITHER CONTACT YOUR PRIMARY CARE DOCTOR, THE PHYSICIAN WHOSE NAME AND NUMBER YOU WERE GIVEN, OR RETURN TO THE ED IMMEDIATELY. Scripts Ondansetron (ONDANSETRON ODT) 4 Mg Tab.rapdis 1 TAB PO PRN Q6-8HRS for n/v, #20 TAB Prov: SAGRARIO REYES 07/31/21 Doxycycline Hyclate (DOXYCYCLINE HYCLATE) 100 Mg Capsule 1 CAP PO BID for infection, #13 CAP Prov: SAGRARIO REYES 07/31/21 SAGRARIO REYES Jul 31, 2021 17:32 BARB ROTHMAN MD Jul 31, 2021 20:36
[2021-07-31] MEDS ORDERED: DOXYCYCLINE HYCLATE 100 MG TABLET PO ONE (17:45)
[2021-07-31] MEDS ORDERED: cefTRIAXone IM 500 MG VIAL. IM ONE (17:45)
[2021-07-31 17:51] LABS: % ATYL 1 % (0-0); % LYMPHS 15 % (24-48); % MONOS 3 % (0-10); % SEGS 81 % (35-66); PLT ESTIMATE ADEQUATE (ADEQUATE)
[2021-07-31] MEDS ORDERED: DOXY100C3 PO (17:58)
[2021-07-31] MEDS ORDERED: ONDA4TAB12 PO (17:58)
[2021-07-31] MEDS ORDERED: IV NORMAL SALINE 1,000ML 1,000 ML IV ONE (18:30)
[2021-07-31 19:41] LABS: BARBITURATES NEG (NEG); BENZODIAZEPINES NEG (NEG); CANNABINOIDS POS (NEG); COCAINE NEG (NEG); METHADONE NEG (NEG); OPIATES NEG (NEG); PHENCYCLIDINE NEG (NEG)
[2021-07-31 19:44] LABS: CLARITY,URINE CLEAR; COLOR,URINE YELLOW; GLUCOSE,URINE NEG (NEG)
[2021-07-31 19:45] LABS: BACTERIA,URINE 0 /HPF (0-FEW); NITRITE,URINE NEG (NEG); RBC,URINE OCC /HPF (0-2); SQUAMOUS EPITHELIAL CELL,UR FEW /LPF; UROBILINOGEN,URINE 0.2 mg/dL (0.2 mg/dL)
[2021-07-31 19:48] LABS: AMPHETAMINE/METHAMPHETAMINE NEG (NEG)
--- NOTE | 2021-08-01 19:55 | EKG ---
[address] [address] Test Date: 2021-07-31 Test Time: 16:18:54 Pat Name: MAGDA ANTHONY Department: Room: Gender: M [employer]: : 1995 Requested By: SAGRARIO REYES Order Number: [id number] Reading MD: Rashid Dalal Measurements Intervals [place] Rate: 64 P: 59 AR: 124 QRS: 97 QRSD: 96 T: 34 QT: 396 QTc: 408 Interpretive Statements SINUS RHYTHM NON SPECIFIC ST-T WAVE CHANGES Electronically Signed On 08-02-2021 15:02:15 CDT by Rashid Dalal
== END 2021-07-31 20:03 | disposition home or self-care (01) ==
LOC: ER 16:04
DX: Z20.2 Contact with and (suspected) exposure to infections with a predominantly sexual mode of transmission (principal); R11.11 Vomiting without nausea; F41.9 Anxiety disorder, unspecified; F12.10 Cannabis abuse, uncomplicated
CPT/HCPCS: 36415; 71045; 80053; 80307; 81001; 84484; 85007; 85025; 86592; 87491; 87591; 93005; 96361; 96372; 96374; 99285; J0696; J2405; J7030